=== PATIENT | female | born 1950 | race African-American/Black ===

== ENCOUNTER 2025-02-09 06:14 | Emergency (ER) | payer OTHER, MEDICARE ==
[~2025-02-09] VITALS: Ht 162.6 cm; Wt 77.0 kg
[2025-02-09 06:17] VITALS: O2SAT 95
[2025-02-09] MEDS: DEXTROSE 50% WATER 50ML SYRINGE IV ONE (06:39)
[2025-02-09 06:50] LABS: BASOPHILS % 0.2 % (0.0-2.0); EOSINOPHILS % 0.3 % (0.0-5.0); HEMATOCRIT. 33.6 % (36.0-48.0); HEMOGLOBIN. 11.5 g/dL (12.0-16.0); LYMPHOCYTES % 7.2 % (20.0-50.0); MEAN PLATELET VOLUME 9.2 fl (7.4-10.4); MONOCYTES % 7.4 % (2.0-8.0); NEUTROPHILS % 84.9 % (40.0-76.0); PLATELET 112 x1000/uL (130-400); RED BLOOD CELL COUNT 3.84 mill/uL (4.2-5.4); RED CELL DISTRIBUTION WIDTH 15.1 % (11.6-14.6)
[2025-02-09 07:08] LABS: TROPONIN I HIGH SENSITIVITY 4 ng/L (3.0-34)
[2025-02-09 07:09] LABS: CREATININE 0.8 mg/dL (0.6-1.0); UREA NITROGEN BLOOD 25 mg/dL (9-23)
[2025-02-09 07:11] LABS: ASPARTATE AMINOTRANSFERASE 50 IU/L (<34); BILIRUBIN DIRECT 1.3 mg/dL (<=3.0); BILIRUBIN TOTAL 2.2 mg/dL (0.1-1.0); PROTEIN TOTAL 4.6 g/dL (6.0-8.3)
[2025-02-09 09:41] LABS: TROPONIN I HIGH SENSITIVITY < 4 ng/L (3.0-34)
[2025-02-09 10:30] VITALS: BP 165/77; PULSE 68; RESP 15; TEMP 36.6; O2SAT 97
== END 2025-02-09 11:09 | disposition short-term general hospital (02) ==
LOC: ER 06:40 → EDBEDREQ 08:14 → EDBEDREQTM 08:14 → ER 11:09 → CMPBEDREQ 12:51
DX: R41.82 Altered mental status, unspecified (principal); E11.649 Type 2 diabetes mellitus with hypoglycemia without coma; I10 Essential (primary) hypertension; Z88.0 Allergy status to penicillin; Z88.5 Allergy status to narcotic agent
CPT/HCPCS: 36415; 71045; 80048; 80076; 82550; 82962; 84484; 85025; 93005; 96374; 99291; A4606